=== PATIENT | male | born 1945 | race Caucasian/White ===

== ENCOUNTER 2017-05-03 00:51 | Emergency (ER) | payer OTHER ==
[~2017-05-03] VITALS: Ht 172.7 cm; Wt 72.7 kg
[2017-05-03 00:52] VITALS: BP 96/61; PULSE 65; RESP 18; O2SAT 94
--- NOTE | 2017-05-03 01:55 | ED.REPORT ---
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 He claims that he has syncopal episodes "every once in a while" when he feels dehydrated. Associated symptoms include vomiting, abdominal pain, diaphoresis, and fatigue. Denied symptoms include hematochezia, SOB, and diarrhea. Nursing Notes Stated Complaint: PASSED OUT Chief Complaint: General Complaint Nursing Notes Reviewed: Yes Allergies: Coded Allergies: adhesive tape (Verified Allergy, Unknown, 05/03/17) General Time Seen by Provider: 01:50 Chief Complaint Lost consciousness Syncope Description: Single episode Hx Obtained From: Patient, [employer] Worker Arrived By: Walk-in Onset Occurred: 1 - 4 hours ago Context of Onset: Occurred at home Immunizations: Unknown Recent Healthcare: No recent doctor visit, No recent hospitalization Similar Sx Previous: No Past Medical History Past Medical History AAA ID x2 Defibrillator Past Surgical History Multiple bypass Smoking History Smoker Current Status UNK Ambulatory Status Independent Review of Systems Constitutional: Reports: Fatigue, Denies: Chills, Fever Respiratory: Denies: Shortness of breath GI: Reports: Nausea, Vomiting, Denies: Diarrhea, Hematochezia Skin: Reports Diaphoresis Neurologic: Reports: Syncope Complete sys rev & neg: except as marked. Physical Exam Initial Vital Signs Vital Signs (First) Date Time Temp Pulse Resp B/P Pulse Ox O2 Delivery O2 Flow Rate FiO2 05/03/17 00:52 36.2 65 18 96/61 94 Room Air 05/03/17 06:07 2 Initial VS: Reviewed, Vital signs normal Head / Eyes: Atraumatic, Normocephalic ENT: Mucous membranes moist Neck: Supple, Full range of motion Back: No CVA tenderness Lymphatic: No lymphadenopathy Upper Extremities: Vascular intact, Neuro intact Skin: Warm, Dry Psychiatric: Mood/affect normal, Behavior normal General/Constitutional: Awake, Alert, No acute distress Smells of cigarettes Respiratory / Chest: Atraumatic, Breath sounds NL, Breath sounds = bilat, No respiratory distress Cardiovascular: Heart rate NL, Regular rhythm, Heart sounds NL Lower Extremity / Pelvis / MS: Atraumatic, Inspection NL Neurologic: Oriented X3, Speech NL Abdomen: Atraumatic, Soft Diffuse mild abdominal tenderness Interpretation & Diagnostics Lab Results Interpretation Result Diagram: 05/03/17 0205 05/03/17 0205 Test 05/03/17 02:05 05/03/17 06:00 White Blood Count 19.9th/mm3 (3.8-10.1) Red Blood Count 4.43mil/mm3 (4.40-5.80) Hemoglobin 14.0g/dL (13.8-17.2) Hematocrit 41.8% (41.0-50.0) Mean Corpuscular Volume 94.4fL (81-100) Mean Corpuscular Hemoglobin 31.6pg (27.0-35.0) Mean Corpuscular Hemoglobin Concent 33.5% (32.0-37.0) Red Cell Distribution Width 14.4% (12.3-15.4) Platelet Count 217bil/L (150-400) Neutrophils (%) (Auto) 86.2% (40-74) Lymphocytes (%) (Auto) 6.5% (14-46) Monocytes (%) (Auto) 5.1% (4-12) Eosinophils (%) (Auto) 1.3% (0-5) Basophils (%) (Auto) 0.3% (0-3) Sodium Level 138mEq/L (134-144) Potassium Level 5.0mEq/L (3.5-5.2) Chloride Level 98mEq/L (97-108) Carbon Dioxide Level 27mmol/L (18-29) Blood Urea Nitrogen 24mg/dL (8-27) Creatinine 1.17mg/dL (0.76-1.27) Estimat Glomerular Filtration Rate 66mL/min (>59) Glucose Level 109mg/dL (60-99) Calcium Level 8.8mg/dL (8.5-10.1) Magnesium Level 2.2mg/dL (1.6-2.6) Total Bilirubin 0.4mg/dL (0.0-1.2) Aspartate Amino Transf (AST/SGOT) 21U/L (0-50) Alanine Aminotransferase (ALT/SGPT) 13U/L (0-44) Alkaline Phosphatase 127U/L (25-160) Total Protein 7.1g/dL (6.4-8.4) Albumin 3.9g/dL (3.4-5.0) Hold Smiley Top Tube Received (Received) Alcohols < 10mg/dL (0-10) Urine Color Dark yellow (YELLOW) Urine Appearance Clear (CLEAR,HAZY) Urine pH 6.0 (5.0-8.0) Urine Specific War 1.020 (1.003-1.035) Urine Protein 30mg/dL (NEG,TRACE) Urine Glucose (UA) Negativemg/dL (NEGATIVE) Urine Ketones 15mg/dL (NEGATIVE) Urine Occult Blood Negative (NEGATIVE) Urine Nitrite Negative (NEGATIVE) Urine Bilirubin Negative (NEGATIVE) Urine Urobilinogen 1.0mg/dL (NORMAL) Urine Leukocyte Esterase Negative (NEGATIVE) Urine RBC 0-2/hpf (0-2) Urine WBC 0-5/hpf (0-5) Urine Epithelial Cells Few/hpf (NONE-MOD) Urine Crystals None seen (NONE SEEN) Urine Bacteria Few/hpf (NONE-FEW) Urine Hyaline Casts Occasional/lpf (NONE) Urine Granular Casts None seen (NONE SEEN) Urine Waxy Casts None seen (NONE SEEN) Urine Red Blood Cell Casts None seen (NONE SEEN) Urine White Blood Cell Casts None seen (NONE SEEN) Urine Mucus Present (None Seen) Urine Trichomonas None seen (NONE SEEN) Urine Yeast None (NONE SEEN) Urinalysis Comment None Urine Culture Reflexed Not indicated Lab Results Interpretation: Elevated white blood count of uncertain etiology ECG Interpretation ECG Interpretation: Low voltage, precordial leads Rate 56 Time: 01:56 Interpreted by: ED physician Normal ECG Interpretation: Normal sinus rhythm Re-Eval/Medical Decision Med Decision/Clinical Course Extent 11-year-old male who has had URI symptoms for the last few days. He has felt dehydrated and had a syncopal episode. No injury when he went down. He was hydrated here with IV saline. Laboratory was unremarkable with the exception of an elevated white count. Urine is normal. There is no evidence of pneumonia clinically or on chest x-ray. He has a defibrillator in place which did not fire He will be discharged home. Follow-up with his regular doctor as needed for further evaluation. Re-Evaluation/Progress : Time of Eval: 05:58 Patient Status: Condition improved Re-Evaluation/Progress Note: Patient rechecked. Counseled Regarding: Diagnosis, Lab results Discharge & Departure Impression: Primary Impression: Syncope Syncope type: unspecified Qualified Code: R55 - Syncope and collapse Additional Impression: Dehydration Disposition: Home Discharge Condition All VS Reviewed: Yes Condition: Improved Patient Instructions: Dehydration (ED), Syncope (ED), Syncope in Older Adults ( ED) Additional Instructions: Your syncope was likely due to dehydration. Drink plenty of fluids. Follow-up with your regular doctor if your symptoms worsen. Referrals: [facility], [facility] (PCP) Scribe Attestation Portions of this note were transcribed by Harjinder Walsh. I, Dr. Morris personally performed the history, physical exam and medical decision-making; I reviewed and confirmed the accuracy of the information in the transcribed note. Signed by: Jolene Zuniga, 05/03/2017 Aubrey Morris MD May 03, 2017 01:55 May 03, 2017 01:58
[2017-05-03 02:12] LABS: BASOPHILS % (AUTO) 0.3 % (0-3); EOSINOPHILS % (AUTO) 1.3 % (0-5); MONOCYTES % (AUTO) 5.1 % (4-12); Mean Corpuscular Hemoglobin 31.6 pg (27.0-35.0); Mean Corpuscular Volume 94.4 fL (81-100); NEUTROPHILS % (AUTO) 86.2 % (40-74); Platelet Count 217 bil/L (150-400)
[2017-05-03 02:40] LABS: Magnesium 2.2 mg/dL (1.6-2.6)
[2017-05-03] MEDS ORDERED: 0.9% Sodium Chloride 1,000 ML IV ONE (04:55)
[2017-05-03 06:07] VITALS: BP 113/67; PULSE 67; RESP 17; O2SAT 100
[2017-05-03 06:16] LABS: APPEARANCE,URINE CLEAR (CLEAR,HAZY); COLOR,URINE DARK YELLOW (YELLOW); OCCULT BLOOD,URINE NEGATIVE (NEGATIVE)
[2017-05-03 06:43] VITALS: BP 120/70; PULSE 62; RESP 16; O2SAT 97
--- NOTE | 2017-05-03 08:25 | DRSVH ---
PROCEDURE: X-RAY CHEST ONE VIEW, PORTABLE ([id number]) INDICATIONS: syncope TECHNIQUE: One view of the chest was acquired. COMPARISON: None. FINDINGS: Surgical changes and devices: Pacemaking device with single lead appears normal, but the entirety of the left lateral lung is not included on the study.. Lungs and pleura: No pleural effusions or pneumothorax. Lungs are clear where well visualized. Mediastinum: Mediastinal contours appear normal. Heart size is normal. Bones and chest wall: No suspicious bony lesions. Overlying soft tissues appear unremarkable. IMPRESSION: Small portion of the left lateral midlung cannot be fully visualized, but the lungs visua lized appear normal elsewhere. Pacemaking device appears normal. No trauma or source of syncopal ep isodes. Dictated by: Redd Robledo M.D. on 05/03/2017 at 8:22 Approved by: Redd Robledo M.D. on 05/03/2017 at 8:23
== END 2017-05-03 06:45 | disposition home or self-care (01) ==
LOC: SED 00:51
DX: E86.0 Dehydration (principal); R55 Syncope and collapse; I25.2 Old myocardial infarction; Z91.048 Other nonmedicinal substance allergy status
CPT/HCPCS: 36415; 71010; 80053; 81000; 83735; 85025; 93005; 99285; G0480; J7030